=== PATIENT | female | born 1955 | race African-American/Black ===

== ENCOUNTER 2017-03-11 21:22 | Emergency (ER) | payer OTHER ==
[2017-03-11 21:29] VITALS: BP 153/74; PULSE 66; RESP 18; TEMP 97.7
[2017-03-11] MEDS ORDERED: TOPICAL SKIN ADHESIVE 1 EACH AMP TOPICAL ONE (21:48)
[2017-03-11] MEDS ORDERED: GELATIN SPONGE,ABSORB (SMALL) 1 EACH SPONGE TOPICAL STA (21:48)
--- NOTE | 2017-03-11 22:18 | ED ---
Wound/Laceration HPI - General Chief Complaint: Wound/Laceration Stated Complaint: Finger/Lac Time Seen by Provider: 03/11/17 21:33 Source: patient, RN notes reviewed, old records reviewed Mode of arrival: ambulatory Limitations: no limitations - History of Present Illness Initial Comments: History of him since emergency Department chief complaint of laceration to her right index finger. Patient reports that this occurred at 11:00 today. Continue to bleed. Patient states that she put duct tape right finger to stop the bleeding. Patient reports that he was the distal end of her finger cut on physical trying to open a bottle. Patient denies any peripheral paresthesias. Has full range of motion of the finger. Reports that her tetanus shot is up-to- date. - Related Data Home Medications Medication Instructions Recorded Confirmed Diphenhydra/Phenyleph/Acetamin 10 ml PO DAILY PRN 03/11/17 03/11/17 [Theraflu Expressmax Cold Nt Lq] Multivitamins, Thera [Multivitamin 1 tab PO DAILY 03/11/17 03/11/17 (formulary)] Allergies Allergy/AdvReac Type Severity Reaction Status Date / Time No Known Allergies Allergy Verified 03/11/17 21:42 Review of Systems ROS Statement: Those systems with pertinent positive or pertinent negative responses have been documented in the HPI. ROS Other: All systems not noted in ROS Statement are negative. Past Medical History Past Medical History: Hearing Disorder / Deafness, Musculoskeletal Disorder Additional Past Medical History / Comment(s): right ear slight [id number] History of Any Multi-Drug Resistant Organisms: None Reported Past Surgical History: No Surgical Hx Reported Additional Past Surgical History / Comment(s): cataract surgery Past Anesthesia/Blood Transfusion Reactions: No Reported Reaction Past Psychological History: No Psychological Hx Reported Smoking Status: Current every day smoker Past Alcohol Use History: None Reported Past Drug Use History: None Reported - Past Family History Mother Family Medical History: CVA/TIA, Hypertension Sister(s) Family Medical History: Cancer Additional Family Medical History / Comment(s): leukemia General Exam - General Exam Comments Initial Comments: Well-appearing 8-year-old field. No acute distress. Limitations: no limitations General appearance: alert, in no apparent distress Head exam: Present: atraumatic, normocephalic, normal inspection Eye exam: Present: normal appearance, PERRL, EOMI. Absent: scleral icterus, conjunctival injection, periorbital swelling ENT exam: Present: normal exam, mucous membranes moist Neck exam: Present: normal inspection. Absent: tenderness, meningismus, lymphadenopathy Respiratory exam: Present: normal lung sounds bilaterally. Absent: respiratory distress, wheezes, rales, rhonchi, stridor Cardiovascular Exam: Present: regular rate GI/Abdominal exam: Present: soft, normal bowel sounds. Absent: distended, tenderness, guarding, rebound, rigid Right Hand Wrist exam: Present: full ROM, laceration (0.5 cm laceration over the distal end of the right index finger. No evidence of nail bed involvement.). Absent: normal inspection, tenderness, swelling Neuro motor exam: Present: wrist extension intact, thumb opposition intact, thumb IP flexion intact, thumb adduction intact, fingers 2-5 abduction intact, other Neurosensory exam: Present: 2-point discrimination Vascular: Present: normal capillary refill Back exam: Present: normal inspection Neurological exam: Present: alert, oriented X3, CN II-XII intact Psychiatric exam: Present: normal affect, normal mood Course Vital Signs 03/11/17 21:25 Temperature 97.7 F Pulse Rate 66 Respiratory 18 Rate Blood Pressure 153/74 O2 Sat by Pulse 99 Oximetry Procedures - Laceration Laceration #1 Site: hand (Distal right index anger.) Size (cm): 1 Description: flap Depth: simple, single layer Pre-repair: wound explored, irrigated extensively Type of Sutures: other (Dermabond) Patient Tolerated Procedure: well, no complications Medical Decision Making - Medical Decision Making 8-year-old female presents emergency Department chief complaint of finger laceration to right index finger. She cut earlier today but continued to bleed. On exam at the point of centimeter laceration. Over the distal end of the finger. This laceration may hit a small arteries to continue to bleed. Patient was soaked in water. Return to repair the laceration the bleeding has stopped. The laceration is superficial just continued to bleed. This time I held pressure and applied Dermabond to the distal end of the finger. Patient was informed to monitor for any signs of infection like redness or drainage. Discussed keeping the wound covered. Discussed she does not needing a BX of this time if she does not assisting she needs to come to the emergency department promptly and antibiotics. Patient agrees to treatment plan will comply. Return parameters were discussed. Disposition Clinical Impression: Laceration of right index finger Disposition: HOME SELF-CARE Condition: Good Instructions: Laceration (ED) Additional Instructions: Please leave wound covered for the first 24-48 hours and then leave open to air after that time. Please use clean soap and water to clean, allow the skin glue to follow up on its own.. Please watch for any signs of infection which may include but not limited to increased pain, swelling, redness, fever or chills. Please return to the emergency room if any signs of infection do occur. Please return to the emergency room for any other concerns or complications. Referrals: Conner Sánchez MD [Primary Care Provider] - 1-2 days Time of Disposition: 22:18
== END 2017-03-11 22:49 | disposition home or self-care (01) ==
LOC: EC 21:22
DX: S61.210A Laceration without foreign body of right index finger without damage to nail, initial encounter (principal); F17.200 Nicotine dependence, unspecified, uncomplicated; Z79.899 Other long term (current) drug therapy; W45.8XXA Other foreign body or object entering through skin, initial encounter; Y99.0 Civilian activity done for income or pay
CPT/HCPCS: 12001; 99283

== ENCOUNTER 2020-12-18 21:18 | Inpatient (IN) | payer BC ==
[2020-12-18] MEDS ORDERED: SODIUM CHLORIDE 0.9% 1,000 ML IV STA ×2 (21:31→22:36)
--- NOTE | 2020-12-18 21:58 | ED ---
Altered Mental Status HPI - General Chief Complaint: Neuro Symptoms/Deficit Stated Complaint: Possible stroke Time Seen by Provider: 12/18/20 21:27 Source: patient, EMS, RN notes reviewed, old records reviewed Mode of arrival: EMS Limitations: no limitations - History of Present Illness Initial Comments: This is a 65-year-old female DF for evaluation she presents today for evaluation of altered mental status. Patient does have history of being hard of hearing unable to explain history currently. Patient has difficulty speaking is unable to provide history states that something is wrong with her. Patient denying any complaints of pain. Difficulty expressing MD Complaint: altered mental status, confusion, decreased responsiveness -: unknown Severity: severe Consistency of Symptoms: unknown Context: unknown Associated Symptoms: denies other symptoms Treatments Prior to Arrival: IV fluid - Related Data Home Medications Medication Instructions Recorded Confirmed Diphenhydra/Phenyleph/Acetamin 10 ml PO DAILY PRN 03/11/17 03/11/17 [Theraflu Expressmax Cold Nt Lq] Multivitamins, Thera [Multivitamin 1 tab PO DAILY 03/11/17 03/11/17 (formulary)] Allergies Allergy/AdvReac Type Severity Reaction Status Date / Time No Known Allergies Allergy Verified 03/11/17 21:42 Review of Systems ROS Statement: Those systems with pertinent positive or pertinent negative responses have been documented in the HPI. ROS Other: All systems not noted in ROS Statement are negative. Past Medical History Past Medical History: Hearing Disorder / Deafness, Musculoskeletal Disorder Additional Past Medical History / Comment(s): right ear slight [place] History of Any Multi-Drug Resistant Organisms: None Reported Past Surgical History: No Surgical Hx Reported Additional Past Surgical History / Comment(s): cataract surgery Past Anesthesia/Blood Transfusion Reactions: No Reported Reaction Past Psychological History: No Psychological Hx Reported Smoking Status: Unknown if ever smoked Past Alcohol Use History: None Reported Past Drug Use History: None Reported - Past Family History Mother Family Medical History: CVA/TIA, Hypertension Sister(s) Family Medical History: Cancer Additional Family Medical History / Comment(s): leukemia General Exam - General Exam Comments Initial Comments: NIH of 20, patient is unable to follow directions Limitations: altered mental status General appearance: alert, in no apparent distress, lethargic Head exam: Present: atraumatic, normocephalic, normal inspection Eye exam: Present: normal appearance, PERRL, EOMI. Absent: scleral icterus, conjunctival injection, periorbital swelling ENT exam: Present: normal exam, mucous membranes moist Neck exam: Present: normal inspection. Absent: tenderness, meningismus, lymphadenopathy Respiratory exam: Present: normal lung sounds bilaterally. Absent: respiratory distress, wheezes, rales, rhonchi, stridor Cardiovascular Exam: Present: regular rate, normal rhythm, normal heart sounds. Absent: systolic murmur, diastolic murmur, rubs, gallop, clicks GI/Abdominal exam: Present: soft, normal bowel sounds. Absent: distended, tenderness, guarding, rebound, rigid Extremities exam: Present: normal inspection, full ROM, normal capillary refill. Absent: tenderness, pedal edema, joint swelling, calf tenderness Back exam: Present: normal inspection Neurological exam: Present: alert, oriented X3, CN II-XII intact Psychiatric exam: Present: normal affect, normal mood Skin exam: Present: warm, dry, intact, normal color. Absent: rash Course Vital Signs 12/18/20 12/18/20 12/18/20 21:22 21:41 21:45 Temperature 98 F Pulse Rate 77 80 76 Respiratory 16 16 16 Rate Blood Pressure 164/91 164/91 153/104 O2 Sat by Pulse 92 L 94 L 95 Oximetry 12/18/20 12/18/20 22:00 22:15 Temperature Pulse Rate 74 84 Respiratory 18 16 Rate Blood Pressure 155/109 165/93 O2 Sat by Pulse 95 93 L Oximetry - Reevaluation(s) Reevaluation #1: 12/18/20 22:45 Medical record is reviewed Reevaluation #2: 12/18/20 22:45 Family is at bedside, family and patient updated on findings on computed tomography scan, positive CVA - Consultations Consultation #1: Spoke with [facility] who agreed to admit the patient Medical Decision Making - Medical Decision Making 65 female DF for evaluation patient presents today for evaluation of altered mental status. Positive for CVA left DIRECTOR CALL CVA. Patient be admitted for neurology consult further evaluation and management - Lab Data Result diagrams: 12/18/20 22:09 12/18/20 22:09 Lab Results 12/18/20 12/18/20 Range/Units 22:09 22:09 WBC 8.8 (3.8-10.6) k/uL RBC 4.45 (3.80-5.40) m/uL Hgb 13.9 (11.4-16.0) gm/dL Hct 40.6 (34.0-46.0) % MCV 91.2 (80.0-100.0) fL MCH 31.3 (25.0-35.0) pg MCHC 34.3 (31.0-37.0) g/dL RDW 12.9 (11.5-15.5) % Plt Count 291 (150-450) k/uL MPV 7.6 Neutrophils % 70 % Lymphocytes % 19 % Monocytes % 7 % Eosinophils % 2 % Basophils % 0 % Neutrophils # 6.2 (1.3-7.7) k/uL Lymphocytes # 1.7 (1.0-4.8) k/uL Monocytes # 0.6 (0-1.0) k/uL Eosinophils # 0.2 (0-0.7) k/uL Basophils # 0.0 (0-0.2) k/uL Glucose 123 H (74-99) mg/dL Total Protein 8.2 (6.3-8.2) g/dL Albumin 4.7 (3.5-5.0) g/dL - Radiology Data Radiology results: report reviewed (CTA is negative for acute disease CT brain does show positive left DIRECTOR CALL infarct), image reviewed Critical Care Time Critical Care Time: Yes Total Critical Care Time: 31 Disposition Clinical Impression: Cerebrovascular accident (CVA) Disposition: ADMITTED IP TO THIS [facility] Condition: Serious Is patient prescribed a controlled substance at d/c from ED?: No Referrals: Conner Sánchez MD [Primary Care Provider] - 1-2 days
--- NOTE | 2020-12-18 22:07 | XR ---
EXAMINATION TYPE: XR chest 1V DATE OF EXAM: 12/18/2020 COMPARISON: NONE HISTORY: Altered mental status TECHNIQUE: Single view FINDINGS: There is pulmonary interstitial infiltrate in both lungs. There is poor inspiration. Heart size is normal. IMPRESSION: Pulmonary interstitial infiltrates. Acute heart failure not excluded. No pulmonary consol idation.
--- NOTE | 2020-12-18 22:10 | CT ---
EXAMINATION: CT brain wo con for TPA DATE AND TIME: 12/18/2020 9:47 PM CLINICAL INDICATION: PHH; Neuro deficit, acute, stroke suspected TECHNIQUE: Standard departmental protocol Total DLP: 1132.8 mGy-cm COMPARISON: None. FINDINGS: There is a 1 x 1 cm hypodensity seen on axial images 27 through 33, involving the inferior left tempo ral lobe, seen intimately related to the upper margin of the left tentorium. There is no associated m ass effect or volume loss. 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 There is no intracranial hemorrhage. There is no other intra-axial or extra-axial findings Calvarium is intact. The paranasal sinuses, middle ear cavities, and mastoid sinus air cells are evelyn r. The orbits are unremarkable. IMPRESSION: 1 x 1 x 4 cm AP acute nonhemorrhagic infarction involving the inferior left upper temporal lobe, in t he vascular territory of the left ANNEALING FURNACE TENDER.
--- NOTE | 2020-12-18 22:30 | CT ---
EXAMINATION TYPE: CT angio head neck with contrast and with 3-D reconstruction renderings DATE OF EXAM: 12/18/2020 HISTORY: neuro deficits CT DLP: 593 mGycm. Automated Exposure Control for Dose Reduction was Utilize d. TECHNIQUE: CTA scan of the neck is performed with IV Contrast, patient injected with 100 mL of Isovu e 370, axial images are obtained, coronal and sagittal reformatted images are reviewed. Three-D recon structed images are created on an independent workstation and reviewed. COMPARISON: CT brain without contrast 12/18/2020 FINDINGS: There is significant patient motion artifact degrading image clarity. NECK CTA: Carotid/Vascular Structures: The bilateral carotid and vertebral arterial systems within the neck are widely patent without hemodynamically significant stenoses, dissection, or other flow limiting abnor mality. The left vertebral artery caliber is smaller than the right, congenital variant anatomy. Other: No incidental findings. BRAIN CTA: The anterior and posterior circulation are patent, without arterial cut off or hemodynamically signif icant stenosis. There is no aneurysm. The left AUTO SERVICER has persistent origin from the anterior circ ulation, congenital variant anatomy. Other: No incidental findings. IMPRESSION: No acute vascular abnormality.
[2020-12-18 22:31] LABS: Basophils % (A) 0 %; Eosinophils # (A) 0.2 k/uL (0-0.7); Eosinophils % (A) 2 %; HCT 40.6 % (34.0-46.0); HGB 13.9 gm/dL (11.4-16.0); Lymphocytes # (A) 1.7 k/uL (1.0-4.8); Lymphocytes % (A) 19 %; MCH 31.3 pg (25.0-35.0); MCHC 34.3 g/dL (31.0-37.0); MCV 91.2 fL (80.0-100.0); Mean Platelet Volume 7.6; Monocytes # (A) 0.6 k/uL (0-1.0); Monocytes % (A) 7 %; Neutrophils # (A) 6.2 k/uL (1.3-7.7); Neutrophils % (A) 70 %; Platelet Count 291 k/uL (150-450); RBC 4.45 m/uL (3.80-5.40); RDW 12.9 % (11.5-15.5); WBC 8.8 k/uL (3.8-10.6)
[2020-12-18] MEDS ORDERED: ASPIRIN 325 MG TAB PO STA (22:42)
[2020-12-18 22:43] LABS: ALT 74 U/L (4-34); AST 72 U/L (14-36); Acetaminophen <10.0 ug/mL; African American GFR (CKD) >90 (>60 ml/min/1.73 sqM); Albumin 4.7 g/dL (3.5-5.0); Alkaline Phosphatase 95 U/L (38-126); Anion Gap 12 mmol/L; Blood Urea Nitrogen 13 mg/dL (7-17); Calcium 9.7 mg/dL (8.4-10.2); Carbon Dioxide 22 mmol/L (22-30); Chloride 98 mmol/L (98-107); Glucose 123 mg/dL (74-99); Magnesium 1.8 mg/dL (1.6-2.3); Non-African American GFR(CKD) >90 (>60 ml/min/1.73 sqM); Phosphorus 2.8 mg/dL (2.5-4.5); Salicylate <1.0 mg/dL; Sodium 132 mmol/L (137-145); Total Bilirubin 0.7 mg/dL (0.2-1.3); Total Protein 8.2 g/dL (6.3-8.2)
[2020-12-18 22:45] LABS: Potassium 4.1 mmol/L (3.5-5.1)
[2020-12-18 23:08] LABS: INR 1.1 (<1.2); Prothrombin Time 11.2 sec (9.0-12.0)
[2020-12-18] MEDS: SODIUM CHLORIDE 0.9% 1,000 ML IV SCH (23:23)
[2020-12-18 23:47] LABS: Appearance,Urine Clear (Clear); Bacteria,Urine Rare /hpf; Bilirubin,Urine Negative (Negative); Blood,Urine Negative (Negative); Color,Urine Yellow; Glucose,Urine (UA) Negative (Negative); Hyaline Casts,Urine 24 /lpf (0-2); Ketones,Urine Negative (Negative); Leukocyte Esterase,Urine Large (Negative); Mucus,Urine Rare /hpf; Nitrite,Urine Negative (Negative); PH, Urine 6.5 (5.0-8.0); Protein,Urine Trace (Negative); RBC,Urine 1 /hpf (0-5); Squamous Epithelial Cell,Urine 4 /hpf (0-4); Urobilinogen,Urine <2.0 mg/dL (<2.0); WBC,Urine 44 /hpf (0-5)
[2020-12-19 00:06] LABS: Specific Gravity,Urine >1.050 (1.001-1.035)
[2020-12-19 00:34] LABS: Lactic Acid, Venous 1.4 mmol/L (0.7-2.0)
[2020-12-19 04:35] LABS: Urine Alcohol Negative (Negative); Urine Barbiturate Negative (Negative); Urine Cocaine Negative (Negative); Urine Methadone Negative (Negative); Urine Opiates Negative (Negative); Urine Phencyclidine Negative (Negative)
[2020-12-19] MEDS ORDERED: HALOPERIDOL LACTATE 5 MG/ML 1 ML VIAL IVP ONE (09:33)
--- NOTE | 2020-12-19 10:52 | P.CNNES ---
History of Present Illness Consult date: 12/19/20 Requesting physician: Rakesh Rivera Reason for Consult: stroke History of Present Illness: This is a 65-year-old woman with history of X tobacco use and the remote history of illicit drug use who presented emergency department on 12/18/2020 with confusion and difficulty speaking. History is obtained from the patient's son was at bedside. Per the patient's son the patient the has been having a headache for the last couple days and it seems that the she has missed work recently. Yesterday the patient drove to her son's house and the per the patient's son she was not making sense when she was talking. As well as when she was walking he felt as she was she was walking off balance. He stated that the last normal state was possibly around this past Tuesday. The son did not notice any facial droop. He does not know what medical history she has other than that the she stopped smoking in and he thinks he stopped smoking about 67 years ago as well as the stopped using illicit drug use in the past used heroin and crack. The only medication is a bottle off diclofenac. He's not aware that that patient had any history of strokes or TIAs in the past. He stated that prior to this current event was a alert oriented 3 walking appropriately. But upon seeing the patient today as she continues to not be making sense. Patient's mother had history of strokes in the age of 80s. Some of the workup in the hospital consisted of: Initial Vitals: Blood Pressure of 164/91, heart rate of 77, respiratory of 16, temperature of 98 for oral and pulse ox of 92% room air. T-max today is 99.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 I reviewed the CT of the head and I felt was more subacute than acute. CT angiography of the head and neck was reported as no acute vascular abnormality. EKG is reported as normal sinus rhythm. Normal EKG. CBC with differential is unremarkable. Initial sodium is 132 which is a mildly low at. Initial glucose is 123 which is unremarkable. AST of 72 and ALT of 74. Which is slightly elevated. Ammonia level is 34 which is minimally elevated and that more than not normal. TSH is 0.565 which is considered normal. The other chemistry panel is within normal limits. Urine analysis is leukocyte esterase was large, urine white blood cells 44, urine bacteria is rare. Which seems that she has urinary tract infectio Review of Systems Review of system is limited but the pertinent positive and negative as per HPI. Past Medical History Past Medical History: Hearing Disorder / Deafness, Musculoskeletal Disorder Additional Past Medical History / Comment(s): right ear slight [employer] [place] History of Any Multi-Drug Resistant Organisms: None Reported Past Surgical History: No Surgical Hx Reported Additional Past Surgical History / Comment(s): cataract surgery Past Anesthesia/Blood Transfusion Reactions: No Reported Reaction Past Psychological History: No Psychological Hx Reported Smoking Status: Unknown if ever smoked Past Alcohol Use History: None Reported Past Drug Use History: None Reported - Past Family History Mother Family Medical History: CVA/TIA, Hypertension Sister(s) Family Medical History: Cancer Additional Family Medical History / Comment(s): leukemia Medications and Allergies Home Medications Medication Instructions Recorded Confirmed Type Diclofenac Sodium [Voltaren] 75 mg PO BID 12/18/20 12/18/20 History Allergies Allergy/AdvReac Type Severity Reaction Status Date / Time No Known Allergies Allergy Verified 12/18/20 22:52 Physical Examination - Vital Signs Vital Signs: Vital Signs Temp Pulse Pulse Resp BP BP Pulse Ox 12/19/20 07:37 99.8 F H 66 18 147/83 94 L 12/19/20 06:14 73 16 12/19/20 04:14 98.0 F 64 16 172/83 95 12/19/20 04:00 97.6 F 73 18 160/74 97 12/19/20 00:15 75 16 169/97 94 L 12/18/20 23:15 71 16 133/83 95 12/18/20 22:45 98.6 F 78 16 166/89 97 12/18/20 22:15 84 16 165/93 93 L 12/18/20 22:00 74 18 155/109 95 12/18/20 21:45 76 16 153/104 95 12/18/20 21:41 80 16 164/91 94 L 12/18/20 21:22 98 F 77 16 164/91 92 L Intake and Output 12/18/20 12/19/20 12/19/20 22:59 06:59 14:59 Other: Weight 65.771 kg GENERAL: The patient is lying in bed and is agitated. CHEST: The heart rate is regular rate rhythm. No murmurs to auscultation. No carotid bruit bilaterally. LUNG: Clear to auscultation bilaterally no wheezing noted throughout. Not labored breathing. ABDOMEN/GI: Bowel sounds present in all 4 quadrants. No tenderness to palpation throughout. NEUROLOGICAL: Higher mental function: The patient is awake, alert. Positive aphasia (Seems global). Not following commands or answering questions. When the nurse was giving her the med via left arm, she stated "ouch my arm". Cranial nerves: The pupils are round, equal and reactive to light. Visual rahman could not be assessed. Extraocular movement was tracking me throughout the room and no noticeable nystagmus. No facial weakness. No dysarthria. Rest of cranial nerves could not be assessed because of her condition. Motor: Giat is deferred. The strength is limited because had 4 point restraint since very agitated. She is moving bilateral upper extremities symetrically and there does not seem to be focality. While lowers are also hard to assess but moving them side to side. Normal bulk. Cerebellum: Could not assess. Sensation: Could not assess. Reflexes (right/left): 2+ in upper while lower could not assess because of her cooperation-. Plantars are downgoing bilaterally. Results Urine tox screen is negative. Acetaminophen is less than 10. Salicylates is less than 1.0. [place] virus PCR was not detected - Laboratory Findings CBC and BMP: 12/18/20 22:09 12/18/20 22:09 Abnormal Lab Findings: Abnormal Labs 12/18/20 12/18/20 12/18/20 22:09 22:42 Unknown Sodium 132 L Glucose 123 H AST 72 H ALT 74 H Ammonia 34 H Ur Specific [place] >1.050 H Urine Protein Trace H Ur Leukocyte Esterase Large H Urine WBC 44 H Urine Bacteria Rare H Hyaline Casts 24 H Urine Mucus Rare H Assessment and Plan Assessment: Subacute ischemic stroke (over the inferior left upper temporal lobe. 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 Etiology: Seems embolic. Delerium due to UTI Acute UTI X tobacco use Remote history of illicit drug use (heroin and crack) Plan: * CT of the head is reported as 1 x 1 x 4 cm AP acute nonhemorrhagic infarction involving the inferior left upper temporal lobe and the vascular territory of the left PROCESS IMPROVEMENT MANAGER. I reviewed the CT of the head and I felt was more subacute than acute. * CT angiography of the head and neck was reported as no acute vascular abnormality. * TSH is 0.565 which is considered normal. * In the ED the patient was given aspirin 325 once and then was started on 325 daily. I decreased it to 81 mg daily and started the patient on Plavix 75mg. It does not seem to the patient is on any antiplatelets at home. I started the patient on Lipitor 80 mg daily at bedtime for secondary stroke prophylaxis. * I ordered the MRI of the brain. * 2-D echo with bubble is pending. * Ordered the hemoglobin A1c. * PT OT and TALENT SPECIALIST are consulted. * Every 4 hours neuro checks. * Patient is on continuous cardiac monitoring * Will defer the rest of medical management to the primary team. Plan was discussed with the patient's son was at bedside as well as the patient' s nurse. Thank you for the consultation. Dr. Payne will take over neurological service starting tomorrow AM. Ezequiel High MD Neuro-Hospitalist Time with Patient: Greater than 30
[2020-12-19 12:37] LABS: Chol/HDL Ratio 2.94; LDL Cholesterol,Calculated 85.2 mg/dL (0.0-131.0); VLDL Calculation 17.8 mg/dL (5.00-40.00)
[2020-12-19] MEDS: CLOPIDOGREL 75 MG TAB PO SCH (17:44)
--- NOTE | 2020-12-19 18:00 | ECHOF ---
Referral Reason:Thrombus MEASUREMENTS -------- HEIGHT: 167.6 cm WEIGHT: 65.8 kg BP: 172/83 RVIDd: 2.4 cm (< 3.3) IVSd: 1.0 cm (0.6 - 1.1) LVIDd: 4.4 cm (3.9 - 5.3) LVPWd: 1.2 cm (0.6 - 1.1) IVSs: 1.5 cm LVIDs: 2.8 cm LVPWs: 1.6 cm LA Diam: 3.2 cm (2.7 - 3.8) LAESV Index (A-L): 17.11 ml/m Ao Diam: 2.8 cm (2.0 - 3.7) AV Cusp: 1.9 cm (1.5 - 2.6) MV EXCURSION: 13.666 mm (> 18.000) MV EF SLOPE: 60 mm/s (70 - 150) EPSS: 0.9 cm MV E Sascha: 0.65 m/s MV DecT: 289 ms MV A Sascha: 0.87 m/s MV E/A Ratio: 0.75 FINDINGS -------- Sinus rhythm. This was a technically adequate study. The left ventricular size is normal. There is borderline concentric left ventricular hypertrophy. Overall left ventricular systolic function is normal with, an EF between 60 - 65 %. The right ventricle is normal in size. Normal LA size by volume 22+/-6 ml/m2. The right atrium is normal in size. 2 Contrast study was performed with 1 iv injection of 8 ccs of agitated normal saline at rest. No PFO noted Interatrial and interventricular septum intact. The aortic valve is trileaflet and appears structurally normal. Mild mitral annular calcification present. Trace tricuspid regurgitation present. Unable to estimate RVSP due to inadequate TR jet spectral do ppler profile. The pulmonic valve was not well visualized. The aortic root size is normal. Normal inferior vena cava with normal inspiratory collapse consistent with estimated right atrial pre ssure of 5 mmHg. There is no pericardial effusion. CONCLUSIONS -------- 1. The left ventricular size is normal. 2. There is borderline concentric left ventricular hypertrophy. 3. Overall left ventricular systolic function is normal with, an EF between 60 - 65 %. 4. Contrast study was performed with 1 iv injection of 8 ccs of agitated normal saline at rest. 5. No PFO noted 6. Mild mitral annular calcification present. 7. Trace tricuspid regurgitation present. 8. There is no pericardial effusion. CONTINUOUS IMPROVEMENT ENGINEER: Mariella Rojas RDCS
--- NOTE | 2020-12-19 18:03 | MR ---
EXAMINATION TYPE: MR brain wo con DATE OF EXAM: 12/19/2020 COMPARISON: None HISTORY: Low back pain down left and right leg for 1 month. Altered mental status. Multiplanar multiecho imaging of the brain was performed without contrast. FINDINGS: There is some cerebral cortical atrophy. There is no mass effect nor midline shift. There is no evide nce of intracranial hemorrhage. Diffusion images show to centimeter area of increased signal in the a nterior left occipital lobe adjacent to the brainstem. There is no mass effect. The brainstem has nor mal signal pattern. The ventricles have normal size. The FLAIR and T2 images show scattered multiple foci of increased si gnal at the merrill-white matter junction of both cerebral hemispheres and more concentrated in the fron tariq and parietal lobes. Total number is approximately 30 and most of these measure less than 5 mm. There is no evidence of posterior fossa mass. There is minimal thinning of the corpus callosum. Sella turcica is normal. Exam limited somewhat by motion. IMPRESSION: There is evidence of an acute cortical infarct involving the anterior left occipital lobe adjacent to the brainstem. Multiple foci of white matter increased signal more likely related to microvascular ischemia. Demyeli nating disease not excluded.
[2020-12-19] MEDS: SODIUM CHLORIDE 0.9% 1,000 ML IV SCH ×2 (18:20→21:17)
[2020-12-19] MEDS ORDERED: HALOPERIDOL LACTATE 5 MG/ML 1 ML VIAL IVP PRN (20:39)
[2020-12-19] MEDS ORDERED: ACETAMINOPHEN TAB 500 MG TAB PO PRN (20:59)
[2020-12-19] MEDS ORDERED: LACTULOSE 20 GM/30 ML CUP PO ONE (21:00)
[2020-12-19] MEDS: ATORVASTATIN 80 MG TAB PO SCH (21:13)
--- NOTE | 2020-12-19 21:34 | P.HPIM ---
History of Present Illness H&P Date: 12/19/20 Chief Complaint: Altered mental status. patient is a 65-year-old female with a known history of hearing disorder/deafness, and remote history of drug use was brought to the hospital by EMS due to confusion and altered mental status. Patient is unable to provide any history. According to patient's she has been having headache for the past couple of days and missing work recently. Yesterday patient drove to her son's house., Her son noted that she has been walking off balance and also talking currently and trouble finding words. As per his son patient did not have any prior history of CVA/TIA. No diarrhea. No fever no chills. Was not complaining of any abdominal pain. Did not complain of chest pain, leg swelling or palpitations. Today morning patient became agitated and combative. She was given Haldol IV. On admission blood pressure 164/91 pulse 77 pulse ox 92% on room air. Patient had T-max of 99.8. CT head showed acute hemorrhagic infarct involving the inferior left upper temporal lobe in the vascular territory of left [employer]CHITECT. Chest x-ray showed pulmonary interstitial infiltrates. Acute heart failure and excluded. No pulmonary consolidation. EKG showed normal sinus rhythm CT angiogram showed no acute vascular abnormality. Laboratory showed sodium 132 potassium 4.1 chloride 98 BUN 13 and creatinine 0.67 AST 72 ALT 74 alk phos 95 and ammonia level is 34 and troponin x1 - LDL 85 TSH 0.565 and urinalysis showed increased specific gravity large l eukoesterase elevated WBC count and squamous epithelial cells 4. UDS negative. SDS negative. Coronavirus PCR not detected. Review of Systems Complete review of systems could not be obtained from the patient. Past Medical History Past Medical History: Hearing Disorder / Deafness, Musculoskeletal Disorder Additional Past Medical History / Comment(s): right ear slight [place] History of Any Multi-Drug Resistant Organisms: None Reported Past Surgical History: No Surgical Hx Reported Additional Past Surgical History / Comment(s): cataract surgery Past Anesthesia/Blood Transfusion Reactions: No Reported Reaction Past Psychological History: No Psychological Hx Reported Smoking Status: Unknown if ever smoked Past Alcohol Use History: None Reported Past Drug Use History: None Reported - Past Family History Mother Family Medical History: CVA/TIA, Hypertension Sister(s) Family Medical History: Cancer Additional Family Medical History / Comment(s): leukemia Medications and Allergies Home Medications Medication Instructions Recorded Confirmed Type Diclofenac Sodium [Voltaren] 75 mg PO BID 12/18/20 12/18/20 History Allergies Allergy/AdvReac Type Severity Reaction Status Date / Time No Known Allergies Allergy Verified 12/18/20 22:52 Physical Exam Vitals: Vital Signs Temp Pulse Pulse Resp BP BP Pulse Ox 12/19/20 07:37 99.8 F H 66 18 147/83 94 L 12/19/20 06:14 73 16 12/19/20 04:14 98.0 F 64 16 172/83 95 12/19/20 04:00 97.6 F 73 18 160/74 97 12/19/20 00:15 75 16 169/97 94 L 12/18/20 23:15 71 16 133/83 95 12/18/20 22:45 98.6 F 78 16 166/89 97 12/18/20 22:15 84 16 165/93 93 L 12/18/20 22:00 74 18 155/109 95 12/18/20 21:45 76 16 153/104 95 12/18/20 21:41 80 16 164/91 94 L 12/18/20 21:22 98 F 77 16 164/91 92 L Intake and Output 12/18/20 12/19/20 12/19/20 22:59 06:59 14:59 Other: Weight 65.771 kg PHYSICAL EXAMINATION: Patient is lying in the bed comfortably, no acute distress. Does not respond to verbal commands... HEENT: Normocephalic. Neck is supple. Pupils reactive. Nostrils clear. Oral cavity is moist. Ears reveal no drainage. Neck reveals no JVD, carotid bruits, or thyromegaly. CHEST EXAMINATION: Trachea is central. Symmetrical expansion. Lung rahman clear to auscultation and percussion. CARDIAC: Normal S1, S2 with no gallops. No murmurs ABDOMEN: Soft. Bowel sounds normal. No organomegaly. No abdominal bruits. Extremities: reveal no edema. No clubbing or cyanosis Neurologically Does not respond to verbal commands. Aphasic. Patient is able to move her bilateral upper extremities. Skin: No rash or skin lesions. Psychiatric: Could not be assessed at this time. Musculoskeletal: No joint swelling or deformity. Results CBC & Chem 7: 12/18/20 22:09 12/18/20 22:09 Labs: Abnormal Lab Results - Last 24 Hours (Table) 12/18/20 12/18/20 12/18/20 Range/Units 22:09 22:42 Unknown Sodium 132 L (137-145) mmol/L Glucose 123 H (74-99) mg/dL AST 72 H (14-36) U/L ALT 74 H (4-34) U/L Ammonia 34 H (<30) umol/L Ur Specific [place] >1.050 H (1.001-1.035) Urine Protein Trace H (Negative) Ur Leukocyte Esterase Large H (Negative) Urine WBC 44 H (0-5) /hpf Urine Bacteria Rare H (None) /hpf Hyaline Casts 24 H (0-2) /lpf Urine Mucus Rare H (None) /hpf Thrombosis Risk Factor Assmnt - DVT/VTE Prophylaxis DVT/VTE Prophylaxis: Pharmacologic Prophylaxis ordered Assessment and Plan Assessment: Subacute ischemic stroke involving the left upper temporal lobe and the territory of left [employer]. Aphasia and off balance. Acute urinary tract infection Delirium possibly due to infection History of smoking History of heroin and crack cocaine use. DVT prophylaxis Heparin subcu Plan: Patient will be continued aspirin and statins and Plavix. Complete neurological work-up including MRI of the brain and 2D echocardiogram was ordered. CT angiogram of the head and neck showed no vascular abnormality. TSH, B12, folate, A1c levels were ordered. TSH within normal limits. Continue with neurochecks. Continue with antibiotics in the form of ceftriaxone. Follow-up urine culture report. Haldol as needed for agitation. Continue to follow closely and further recommendations based on clinical course. Prognosis is guarded. Time with Patient: Greater than 30
[2020-12-20] MEDS: HEPARIN SODIUM,PORCINE/PF 5,000 UNIT/0.5 ML SYRINGE SQ SCH ×3 (00:10→18:41)
[2020-12-20] MEDS: SODIUM CHLORIDE 0.9% 1,000 ML IV SCH ×2 (05:59→18:00)
[2020-12-20] MEDS ORDERED: ASPIRIN 81 MG PO SCH (09:00)
[2020-12-20] MEDS ORDERED: ASPIRIN 325 MG TAB PO SCH (09:00)
[2020-12-20] MEDS: CLOPIDOGREL 75 MG TAB PO SCH (10:17)
--- NOTE | 2020-12-20 11:50 | P.PN ---
Subjective Progress Note Date: 12/20/20 The patient is a 65-year-old -[place] female who is seen in neurologic follow-up on December 20, 2020, via telemneurology. The chart is reviewed. Objective - Vital Signs Vital signs: Vital Signs Temp 98.5 F 12/20/20 08:41 Pulse 62 12/20/20 08:41 Resp 20 12/20/20 08:41 BP 184/82 12/20/20 08:41 Pulse Ox 95 12/20/20 08:41 Intake & Output 12/19/20 12/20/20 12/20/20 18:59 06:59 18:59 Weight 96.5 kg Other: Voiding Method Bedpan Bedpan # Voids 1 1 - Exam Gen.: The patient is asleep in the bed. She is well-nourished, well-developed and in no acute distress. HEENT: Head is atraumatic, normocephalic. Fundus not visualized. There is no scleral icterus. Mucous membranes are moist. Neurological examination Mental status: The patient is unable to follow commands. She is unable to state her name. She states "yeah yeah" as a response to the question of her name. In response to other questions she again states "Yep". The patient is unable to adequately cooperate with the examination. Cranial nerves: Pupils are 3 mm, equal and reactive. There is a right facial droop noted. Motor: Patient is moving all 4 extremities however, there is less movement of the right upper extremity. Left appliance service technician strength is intact. Right appliance service technician is absent. - Labs CBC & Chem 7: 12/18/20 22:09 12/18/20 22:09 Labs: Microbiology - Last 24 Hours (Table) 12/18/20 Unknown Urine Culture - Preliminary Urine,Voided Assessment and Plan Assessment: 1. Patient is a 65-year-old female who presented with speech difficulties and confusion. MRI of the brain reports an acute infarct in the left occipital region. I disagree with this report. The acute infarct is in the left medial temporal lobe. This is consistent with the patient's global aphasia. 2. Reported history of hearing loss-? Severity Plan: 1. Continue stroke workup including 2-D echocardiogram, PT, OT and speech therapy evaluations, lipid panel and hemoglobin A1c 2. Patient should be started on dual antiplatelet therapy with aspirin 81 mg and Plavix 75 mg 3. High-dose statin 4. Continuing care/social work for discharge planning Time with Patient: Less than 30 (spent 20 minutes with patient via tele neurology)
--- NOTE | 2020-12-20 13:14 | P.PN ---
Subjective 65-year-old female was admitted for aphasia appears to be Wernicke's aphasia and patient is completely confused because of his dysphagia. Patient appears to have acute infarct in the left temporal lobe. Patient is on aspirin and statin. Physical therapy and occupational therapy evaluated the patient patient will need either inpatient or subacute rehabilitation. Dr. Batista will be consulted. Review of systems: Unable to obtain due to her clinical condition All inpatient medications were reviewed and appropriate changes in these medications as dictated in the interval history and assessment and plan. Objective - Vital Signs Vital signs: Vital Signs Temp 98.8 F 12/20/20 12:48 Pulse 83 12/20/20 12:48 Resp 18 12/20/20 12:48 BP 153/88 12/20/20 12:48 Pulse Ox 96 12/20/20 12:48 Intake & Output 12/19/20 12/20/20 12/20/20 18:59 06:59 18:59 Weight 96.5 kg Other: Voiding Method Bedpan Bedpan # Voids 1 1 - Exam PHYSICAL EXAMINATION: GENERAL: The patient is alert and oriented x3, not in any acute distress. Well developed, well nourished. HEENT: Pupils are round and equally reacting to light. EOMI. No scleral icterus. No conjunctival pallor. Normocephalic, atraumatic. No pharyngeal erythema. No thyromegaly. CARDIOVASCULAR: S1 and S2 present. No murmurs, rubs, or gallops. PULMONARY: Chest is clear to auscultation, no wheezing or crackles. ABDOMEN: Soft, nontender, nondistended, normoactive bowel sounds. No palpable organomegaly. MUSCULOSKELETAL: No joint swelling or deformity. EXTREMITIES: No cyanosis, clubbing, or pedal edema. NEUROLOGICAL: Patient has Wernicke's aphasia SKIN: No rashes. - Labs CBC & Chem 7: 12/18/20 22:09 12/18/20 22:09 Labs: Microbiology - Last 24 Hours (Table) 12/18/20 Unknown Urine Culture - Preliminary Urine,Voided Assessment and Plan Plan: Subacute ischemic stroke involving the left upper temporal lobe, patient has W ernicke's aphasia secondary to this. Physical a patient will be evaluated patient continue his statin. Patient's LDL is 85 TSH is within normal limits pending hemoglobin A1c. Pending B12 and folate levels. Antiplatelet therapy patient probably will need inpatient rehabilitation A symptomatic bacteriuria will not require any antibiotics and medics will be discontinued No evidence of delirium patient appears to be confused secondary to Wernicke's aphasia History of smoking History of heroin and crack cocaine use. DVT prophylaxis Heparin subcu
[2020-12-20 15:04] LABS: Basophils % (A) 1 %; Eosinophils # (A) 0.1 k/uL (0-0.7); Eosinophils % (A) 2 %; HCT 40.2 % (34.0-46.0); HGB 13.3 gm/dL (11.4-16.0); Lymphocytes # (A) 2.2 k/uL (1.0-4.8); Lymphocytes % (A) 35 %; MCH 30.1 pg (25.0-35.0); MCHC 33.1 g/dL (31.0-37.0); MCV 90.9 fL (80.0-100.0); Mean Platelet Volume 7.2; Monocytes # (A) 0.5 k/uL (0-1.0); Monocytes % (A) 9 %; Neutrophils # (A) 3.3 k/uL (1.3-7.7); Neutrophils % (A) 51 %; Platelet Count 308 k/uL (150-450); RBC 4.42 m/uL (3.80-5.40); RDW 13.5 % (11.5-15.5); WBC 6.4 k/uL (3.8-10.6)
[2020-12-20 15:23] LABS: African American GFR (CKD) >90 (>60 ml/min/1.73 sqM); Anion Gap 8 mmol/L; Blood Urea Nitrogen 8 mg/dL (7-17); Calcium 8.8 mg/dL (8.4-10.2); Carbon Dioxide 25 mmol/L (22-30); Chloride 102 mmol/L (98-107); Glucose 108 mg/dL (74-99); Non-African American GFR(CKD) >90 (>60 ml/min/1.73 sqM); Potassium 3.9 mmol/L (3.5-5.1); Sodium 135 mmol/L (137-145)
[2020-12-20] MEDS ORDERED: LORazepam 2 MG/ML INJ IV STA ×4 (17:00→18:11)
[2020-12-20] MEDS ORDERED: levETIRAcetam IV 1,000 MG in SALINE 1 100ML.BAG IVPB STA (17:01)
[2020-12-20] MEDS ORDERED: LORazepam 2 MG/ML INJ ONE (17:01)
[2020-12-20 17:11] LABS: Glucose,Whole Blood 97 mg/dL (75-99)
[2020-12-20] MEDS ORDERED: propofoL 100 ML IV ONE (17:45)
--- NOTE | 2020-12-20 17:50 | CT ---
EXAMINATION TYPE: CT brain wo con DATE OF EXAM: 12/20/2020 COMPARISON: 12/18/2020 HISTORY: Seizure, altered mental status. CT DLP: 2159.4 mGycm Automated exposure control for dose reduction was used. Images obtained of the brain without contrast. Ventricles and sulci appear normal. There is no mass effect nor midline shift. There is no sign of in tracranial hemorrhage. The calvarium is intact. There is incomplete pneumatization of the mastoid sin uses. IMPRESSION: Negative CT scan of the brain. No change.
[2020-12-20 18:06] LABS: Glucose,Whole Blood 99 mg/dL (75-99)
[2020-12-20 18:30] LABS: ABG Base Excess 2.2 mmol/L; ABG HCO3 26 mmol/L (21-25); ABG Oxygen Saturation 99.7 % (94-97); ABG PCO2 35 mmHg (35-45); ABG PH 7.48 (7.35-7.45); ABG PO2 375 mmHg (83-108); ABG TCO2 27 mmol/L (19-24); Allen Test Performed? Yes
--- NOTE | 2020-12-20 18:31 | P.EN ---
HPI: 65-year-old woman with unknown medical history presented with ischemic stroke involving the left upper temporal lobe causing symptoms of aphasia, dysphagia, increased secretions. A team was called on This patient secondary to seizure- like activity. Upon arrival, was noted the patient had right-sided colonic activity in the upper and lower extremity of the right side. Patient was encephalopathic, aphasic, but did appear to track to voice. Hospital course this point involved imaging with MRI of the brain which demonstrated left temporal lobe cortical involvement of ischemic stroke, without hemorrhage. Patient had been treated with aspirin, Plavix, statin. She had been seen by neurology. Echocardiogram demonstrated appropriate ejection fract ion without wall motion abnormality, no PFO, no valvular pathology, mild LVH. CT angiography did not demonstrate any vascular abnormalities. EKG demonstrated normal sinus rhythm without ischemic changes. Patient did have an episode of agitation on 12/19 night, and received Haldol. Vitals: Afebrile, 190-200/100-110, heart rate 100-120, 98% on 2 L nasal cannula Physical exam: Generally, she appeared to be in distress with tonic clonic movements She did not withdraw to pain in the upper or lower extremity on the right side, increased tone on the right side She did localize to pain on the left side She was able to track to voice, but does not follow commands Pupils were pinpoint, sluggish Copious secretions She did have a gag reflex Symmetric chest expansion, normal breathing rate, no accessory muscle use Perfusing all 4 extremities well No pitting edema, no rashes Labs: CBC unremarkable BMP unremarkable UA with large leukocyte esterase, bacteria, 44 WBCs Urine tox screen negative Covid negative Imaging: reviewed and summarized above Assessment/plan: Seizures complicated ischemic stroke -Transfer to the ICU -Patient received 4 mg of Ativan on the floor, loaded with 1000 mg Keppra -Recommend starting 1000 mg Keppra twice a day -Repeat CT of the head stat did not demonstrate hemorrhage, midline shift, or enlarged ventricles -Patient was intubated and placed on before meals, 450, FiO2 100, respiratory rate 12, PEEP 5 -Propofol was started 20, uptitrated to 60 -Received another 4 mg of Ativan status post intubation -Case was discussed with ICU physician, primary team, neurology specialist -Recommendation to transfer patient to tertiary care center due to lack of EEG, need for continuous monitoring to get seizures under control -Post intubation chest x-ray demonstrated tube in good position, no pneumothorax, no collapsed lung -Postintubation ABG is pending I spent approximately 60 minutes of critical care time with this patient
--- NOTE | 2020-12-20 18:32 | XR ---
EXAMINATION TYPE: XR chest 1V portable DATE OF EXAM: 12/20/2020 COMPARISON: 12/18/2020 HISTORY: Intubation TECHNIQUE: Single view FINDINGS: Endotracheal tube is 1.8 cm from the felipe. There is nasogastric tube in the stomach. Lung s are clear of consolidation. There is no heart failure. There are chest leads. IMPRESSION: Tubing in good position. No acute lung disease. There is clearing of the mild pulmonary i nterstitial infiltrates compared to recent exam.
[2020-12-20] MEDS ORDERED: levETIRAcetam IV 1,000 MG in SALINE 1 100ML.BAG IVPB SCH (21:00)
[2020-12-20] MEDS: ATORVASTATIN 80 MG TAB PO SCH (21:10)
[2020-12-20 21:28] VITALS: RESP 16; TEMP 97.7
[2020-12-20 23:47] VITALS: BP 139/95; PULSE 61
--- NOTE | 2020-12-21 11:38 | P.DS ---
Providers Date of admission: 12/18/20 22:42 Expected date of discharge: 12/20/20 Attending physician: Roosevelt Gusman Consults: 12/18/20 22:43 Consult Physician Routine Consulting Provider: Ezequiel High Consult Reason/Comments: cva Do you want consulting provider notified?: Yes 12/20/20 12:12 Consult Physician Routine Consulting Provider: Albert Cain Consult Reason/Comments: Possible in patient Do you want consulting provider notified?: Yes 12/20/20 18:08 Consult Physician Routine Consulting Provider: Catrachito High Consult Reason/Comments: seizure and CVA, altered mentation Do you want consulting provider notified?: Already Contacted Primary care physician: Princess Prieto [facility] Hospital Course: 65-year-old female was admitted with Wernicke's aphasia. Patient is found to have stroke involving the left temporal lobe. Patient did not receive any TPA but was on aspirin and Plavix along with statin. Patient started having she's is which is not expected and temporal lobe stroke patient's seizures were uncontrolled and patient had a repeat CT of the head which did not show any intracranial hemorrhage. Patient was intubated for protection of failure and patient had status epilepticus received Ativan and was loaded with Keppra subsequently was transferred to [facility] to neurointensive care unit for further management of seizures and continuous EEG monitoring. The rest of the medical problems please refer to my progress note from 12/20/2020 Patient Condition at Discharge: Serious Plan - Discharge Summary Discharge Rx Participant: No New Discharge Prescriptions: No Action Diclofenac Sodium [Voltaren] 75 mg PO BID Discharge Medication List Diclofenac Sodium [Voltaren] 75 mg PO BID 12/18/20 [History] Follow up Appointment(s)/Referral(s): Conner Sánchez MD [Primary Care Provider] - 1-2 days Discharge Disposition: [facility]
== END 2020-12-21 00:15 | disposition short-term general hospital (02) | DRG 65 ==
LOC: EC 21:18 → 3SCARD 22:42 → 2SICU 12-20 17:14
PROVIDERS: ADMIT Hospitalist; ATTEND Hospitalist
PROC: 0BH17EZ Insertion of Endotracheal Airway into Trachea, Via Natural or Artificial Opening (ICD-10-PCS; principal; 2020-12-20)
PROC: 5A1935Z Respiratory Ventilation, Less than 24 Consecutive Hours (ICD-10-PCS; principal; 2020-12-20)
DX: I63.532 Cerebral infarction due to unspecified occlusion or stenosis of left posterior cerebral artery (principal); N39.0 Urinary tract infection, site not specified; F05 Delirium due to known physiological condition; G93.40 Encephalopathy, unspecified; R13.10 Dysphagia, unspecified; R47.01 Aphasia; Z20.822 Contact with and (suspected) exposure to COVID-19; G40.901 Epilepsy, unspecified, not intractable, with status epilepticus; H91.90 Unspecified hearing loss, unspecified ear; Z79.82 Long term (current) use of aspirin; Z80.6 Family history of leukemia; Z82.49 Family history of ischemic heart disease and other diseases of the circulatory system; Z82.3 Family history of stroke; Z87.891 Personal history of nicotine dependence; Z98.49 Cataract extraction status, unspecified eye; R45.1 Restlessness and agitation; F11.11 Opioid abuse, in remission; F14.11 Cocaine abuse, in remission; Z53.9 Procedure and treatment not carried out, unspecified reason
CPT/HCPCS: 36415; 36600; 70450; 70496; 70498; 70551; 71045; 80048; 80053; 80061; 80143; 80179; 80306; 81001; 82140; 82607; 82747; 82805; 83036; 83605; 83735; 84100; 84443; 84484; 85025; 85610; 85730; 87077; 87086; 87186; 87635; 93005; 93306; 94002; 96360; 99291